=== PATIENT | female | born 1970 | race Caucasian/White ===

== ENCOUNTER 2024-05-23 07:13 | Day surgery (SDC) | payer MEDICAID, OTHER ==
[2024-05-18 12:14] LABS: BASOPHILS # (AUTO) 0.1 X10'3 (0-0.2); BASOPHILS % (AUTO) 0.9 % (0-1); EOSINOPHILS # (AUTO) 0.3 X10'3 (0-0.9); EOSINOPHILS % (AUTO) 4.2 % (0-6); LYMPHOCYTES # (AUTO) 1.7 X10'3 (1.1-4.8); LYMPHOCYTES % (AUTO) 20.8 % (21-51); MEAN CORPUSCULAR HEMOGLOBIN 30.2 PG (27.0-31.0); MEAN CORPUSCULAR HGB CONC 34.1 g/dL (33.0-36.5); MEAN CORPUSCULAR VOLUME 88.7 FL (78-98); MEAN PLATELET VOLUME 8.3 FL (7.4-10.4); MONOCYTES # (AUTO) 0.6 X10'3 (0-0.9); MONOCYTES % (AUTO) 7.4 % (2-12); NEUTROPHILS # (AUTO) 5.5 X10'3 (1.8-7.7); NEUTROPHILS % (AUTO) 66.7 % (42-75); PRE OP HEMATOCRIT 43.6 % (35.0-45.0); PRE OP HEMOGLOBIN 14.9 g/dL (12.0-16.0); PRE OP PLATELET COUNT 242 X10'3 (140-440); PRE OP WHITE BLOOD COUNT 8.3 10'3 (4.8-10.8); RED BLOOD COUNT 4.92 X10'6 (4.20-5.60); RED CELL DISTRIBUTION WIDTH 13.3 % (11.5-14.5)
[2024-05-18 12:15] LABS: ALBUMIN 3.6 G/DL (3.4-5.0); ALBUMIN/GLOBULIN RATIO 0.9 (1.1-1.5); ALKALINE PHOSPHATASE 100 IU/L (46-116); BLOOD UREA NITROGEN 11 MG/DL (7-18); BUN/CREATININE RATIO 14.9 (10.0-20.0); CALCIUM 8.9 MG/DL (8.5-10.1); CHLORIDE 105 MMOL/L (99-107); CREATININE 0.74 MG/DL (0.40-0.90); PRE OP ALT 20 U/L (30-65); PRE OP ANION GAP 0 (8-16); PRE OP AST 15 U/L (10-37); PRE OP BILIRUB, TOTAL 0.4 MG/DL (0.0-1.0); PRE OP GLUCOSE 102 MG/DL (70-104); PRE OP SODIUM 135 MMOL/L (135-145); TOTAL CARBON DIOXIDE 29.9 MMOL/L (24-32); TOTAL PROTEIN 7.4 G/DL (6.4-8.2); eGFR 82 ML/MIN
[~2024-05-23] VITALS: Ht 165.1 cm; Wt 62.4 kg
[2024-05-23] VITALS (11 sets, daily range): BP systolic 113–155; BP diastolic 72–103; PULSE 53–81; RESP 10–16; TEMP 98.2; O2SAT 96–100
[2024-05-23] MEDS: cefazolin 2gm/D5W 100mL 100 ML IV ONE (05:30)
[~2024-05-23 07:13] MED LIST: ALBUTEROL INH; DOCUMENT DATE & TIME OF BETA-BLOCKER PO ONE; LEVO25TA7 PO; LISI20TA28 PO; METO-411 PO; albuterol 2.5 MG/3 ML nebule NEB ONE
[2024-05-23] MEDS: ringers solution, lacted 1,000 ML IV SCH (08:59)
[2024-05-23] MEDS: famotidine 20mg tablet PO ONE (08:59)
[2024-05-23] MEDS ORDERED: fentaNYL/PF 50MCG/1 ML 2ML syringe ONE (09:45)
[2024-05-23] MEDS ORDERED: midazolam 1 mg/ML 2ml injection ONE (09:46)
[2024-05-23] MEDS ORDERED: LIDOcaine 0.5% (5mg/ml) 50ml vial ONE (09:47)
[2024-05-23] MEDS ORDERED: propofol inj 20 ML IV ONE (10:10)
[2024-05-23] MEDS ORDERED: morphine 2 MG/ML inj. syringe IV PRN ×2 (10:20)
[2024-05-23] MEDS ORDERED: ondansetron/PF 4mg/2ml inj IV PRN ×2 (10:20)
[2024-05-23] MEDS ORDERED: proCHLORperazine 10 MG/2 ml inj IV PRN ×2 (10:20)
[2024-05-23] MEDS ORDERED: ringers solution, lacted 1,000 ML IV SCH ×2 (10:20)
[2024-05-23] MEDS ORDERED: morphine 4 MG/ML inj SYRINge IV PRN ×2 (10:20)
[2024-05-23] MEDS ORDERED: meperidine/PF 25mg/ml syringe IV PRN ×6 (10:20)
[2024-05-23] MEDS: BUPIVAcaine/PF 2.5mg/ml (0.25%) 10ml vial ONE (11:16)
[2024-05-23] MEDS: LIDOcaine 2% (20mg/ml) 5ml vial ONE (11:16)
[2024-05-23] MEDS: traMADol 50MG tablet PO ONE (11:37)
== END 2024-05-23 12:15 | disposition home or self-care (01) ==
LOC: PAS 07:13
PROVIDERS: ATTEND Orthopaedic Surgery Hand Surgery
DX: G56.01 Carpal tunnel syndrome, right upper limb (principal); M18.11 Unilateral primary osteoarthritis of first carpometacarpal joint, right hand; I45.2 Bifascicular block; I10 Essential (primary) hypertension; J44.9 Chronic obstructive pulmonary disease, unspecified; F32.A Depression, unspecified; Z79.890 Hormone replacement therapy; Z79.899 Other long term (current) drug therapy; Z90.49 Acquired absence of other specified parts of digestive tract; Z90.89 Acquired absence of other organs; Z90.710 Acquired absence of both cervix and uterus; Z98.818 Other dental procedure status; Z98.890 Other specified postprocedural states; Z88.5 Allergy status to narcotic agent; Z82.5 Family history of asthma and other chronic lower respiratory diseases
CPT/HCPCS: 25312; 25447; 36415; 64721; 80053; 82948; 85025; 93005; J0690; J2250; J2704; J3010; J3490; J7030; J7120; Z7506; Z7508; Z7512; A4215; A4618; A6449; A7000